=== PATIENT | male | born 1975 | race African-American/Black ===

== ENCOUNTER → 2016-06-11 | Outpatient (CLI) | payer OTHER ==
[~2016-06-11] MED LIST: ALEVE 220MG220 MG PO; FLONASEALLERGY NS; PROAIR HFA0.09 MG/AC IH; SINGULAIR 110 MG/TAB PO; ZYRTEC 10MG10 MG PO
== END ==
LOC: COL.PUL 10:59
DX: R06.02 Shortness of breath (principal)
CPT/HCPCS: J7674

== ENCOUNTER → 2021-11-22 | Outpatient (CLI) | payer OTHER | LOC: COL.RAD 08:30 | DX: J32.4 Chronic pansinusitis (principal) ==